=== PATIENT | female | born 1955 | race Caucasian/White ===

== ENCOUNTER 2022-05-11 15:24 | Observation (INO) ==
[2022-05-11 16:20] LABS: Basophils # 0.1 K/mcL (0.0-0.2); Basophils % 0.8 %; Eosinophils # 0.1 K/mcL (0.0-0.6); Eosinophils % 0.7 %; Hematocrit 45.2 % (35.3-44.9); Hemoglobin 14.8 g/dL (11.5-15.4); Immature Granulocytes % 0.1 % (0-4); Lymphocytes # 3.4 K/mcL (0.6-4.6); Lymphocytes % 37.1 %; Mean Corpuscular HGB Conc 32.7 g/dL (31.6-35.5); Mean Corpuscular Hemoglobin 30.1 pg (28.0-33.3); Mean Corpuscular Volume 91.9 fL (83.0-100.0); Mean Platelet Volume 9.9 fL (9.4-12.4); Monocytes # 0.6 K/mcL (0.0-1.3); Neutrophils # 4.9 K/mcL (1.6-8.9); Platelet Count 323 K/mcL (140-400); Red Blood Count 4.92 M/mcL (3.82-4.97); Red Cell Distribution Width 13.2 % (11.5-14.5); Segmented Neutrophils % 54.3 %; White Blood Count 9.1 K/mcL (4.3-11.1)
[2022-05-11 16:38] LABS: BUN/Creatinine Ratio 10 (6-26); Blood Urea Nitrogen 7 mg/dL (8-23); Calcium 10.2 mg/dL (8.6-10.3); Carbon Dioxide 27 mEq/L (23-29); Chloride 104 mEq/L (98-107); Glucose 104 mg/dL (70-105); Osmolality,Calculated 284 (280-300); Potassium 3.5 mEq/L (3.5-5.1); Sodium 138 mEq/L (136-145); Troponin I < 0.03 ng/mL (< 0.04)
[2022-05-11] MEDS ORDERED: Iopamidol - 370 500 ML MLS IVP ONE (16:47)
[2022-05-11] MEDS ORDERED: Aspirin 81 MG TAB.CHEW PO ONE (20:09)
[2022-05-11] MEDS ORDERED: Melatonin 3 MG TABLET PO PRN (20:32)
[2022-05-11] MEDS ORDERED: Naloxone 0.4 MG/ML INJ IVP PRN (20:32)
[2022-05-11] MEDS ORDERED: Ondansetron 4 MG/2 ML VIAL IVP PRN (20:32)
[2022-05-11] MEDS ORDERED: Acetaminophen 325 MG TABLET PO PRN (20:32)
[2022-05-11] MEDS ORDERED: Nicotine 2 MG GUM BC PRN (21:35)
[2022-05-12] MEDS ORDERED: Ipratropium/Albuterol Neb 3 ML IH PRN (00:21)
[2022-05-12 04:04] LABS: Basophils # 0.1 K/mcL (0.0-0.2); Basophils % 0.7 %; Eosinophils # 0.1 K/mcL (0.0-0.6); Eosinophils % 1.2 %; Hemoglobin 13.7 g/dL (11.5-15.4); Immature Granulocytes % 0.2 % (0-4); Lymphocytes # 3.1 K/mcL (0.6-4.6); Lymphocytes % 35.7 %; Mean Corpuscular HGB Conc 33.4 g/dL (31.6-35.5); Mean Corpuscular Hemoglobin 30.4 pg (28.0-33.3); Mean Corpuscular Volume 91.1 fL (83.0-100.0); Mean Platelet Volume 10.3 fL (9.4-12.4); Monocytes # 0.6 K/mcL (0.0-1.3); Monocytes % 7.2 %; Neutrophils # 4.7 K/mcL (1.6-8.9); Platelet Count 301 K/mcL (140-400); Red Cell Distribution Width 13.2 % (11.5-14.5); White Blood Count 8.6 K/mcL (4.3-11.1)
[2022-05-12 04:22] LABS: Alanine Aminotransferase 9 Units/L (7-52); Albumin/Globulin Ratio 1.6 (1.1-2.2); Alkaline Phosphatase 77 Units/L (34-104); Aspartate Amino Transferase 14 Units/L (13-39); BUN/Creatinine Ratio 10 (6-26); Bilirubin,Total 0.5 mg/dL (0.3-1.0); Blood Urea Nitrogen 6 mg/dL (8-23); Calcium 9.5 mg/dL (8.6-10.3); Carbon Dioxide 26 mEq/L (23-29); Chloride 104 mEq/L (98-107); Globulin 2.5 g/dL (2.4-3.5); Glucose 91 mg/dL (70-105); Magnesium 1.8 mg/dL (1.6-2.6); Osmolality,Calculated 283 (280-300); Phosphorous 3.7 mg/dL (2.7-4.5); Potassium 3.6 mEq/L (3.5-5.1); Sodium 138 mEq/L (136-145); Total Protein 6.5 g/dL (6.4-8.9)
[2022-05-12 04:26] LABS: Chol/HDL Ratio 4.6 (0-4.9); INR 1.1; Prothrombin Time 12.3 Seconds (9.4-12.1)
[2022-05-12 04:29] LABS: Activated Partial Thrombo Time 35.4 Seconds (26.0-36.0)
[2022-05-12 04:37] LABS: Thyroid Stimulating Hormone 2.297 mcIU/mL (0.340-5.600)
[2022-05-12 04:48] LABS: Folate 7.3 ng/mL (3.0-16.0)
[2022-05-12 05:07] LABS: Estimated Average Glucose 108 mg/dl; Hemoglobin A1C 5.4 %
[2022-05-12 06:39] LABS: Bilirubin,Urine Negative (Negative); Blood,Urine Small (Negative); Clarity,Urine Clear (Clear); Color,Urine Yellow (Yellow); Glucose,Urine (UA) Normal (Normal); Hyaline Casts,Urine Few per lpf (None Seen); Ketones,Urine Negative (Negative); Leukocyte Esterase,Urine Moderate (Negative); Mucus,Urine Few per lpf (None-Few); Nitrite,Urine Negative (Negative); Protein,Urine 30 mg/dL (Neg-Trace); Specific Gravity,Urine > 1.030 (1.010-1.025); Squamous Epithelial Cell,Urine Few per hpf (None-Few); Urobilinogen,Urine Normal (Normal); WBC,Urine 15-30 per hpf (0-3)
[2022-05-12 06:46] VITALS: BP 168/91; PULSE 75; TEMP 97.6; O2SAT 94
[2022-05-12] MEDS ORDERED: Nicotine 21 MG PATCH.TD24 TD SCH (09:00)
[2022-05-12] MEDS ORDERED: Aspirin Enteric Coated 81 MG Tablet PO SCH (09:00)
[2022-05-12] MEDS ORDERED: levoFLOXacin 750 MG TABLET PO SCH (09:00)
== END 2022-05-12 10:56 | disposition left against medical advice (07) ==
LOC: EMEROOARM 15:24 → 3BNU 15:24 → SUATTDRO 20:16 → 3BNU 20:52
PROVIDERS: ADMIT Internal Medicine; ATTEND Internal Medicine

== ENCOUNTER 2022-05-13 20:05 | Observation (INO) ==
[2022-05-13] MEDS ORDERED: Iopamidol - 370 500 ML MLS IVP ONE (20:09)
[2022-05-13 20:22] LABS: Hemoglobin 14.4 g/dL (11.5-15.4); Mean Corpuscular HGB Conc 34.3 g/dL (31.6-35.5); Mean Corpuscular Hemoglobin 30.7 pg (28.0-33.3); Mean Corpuscular Volume 89.6 fL (83.0-100.0); Mean Platelet Volume 9.5 fL (9.4-12.4); Platelet Count 331 K/mcL (140-400); Red Blood Count 4.69 M/mcL (3.82-4.97); Red Cell Distribution Width 13.2 % (11.5-14.5)
[2022-05-13 20:26] LABS: White Blood Count 13.2 K/mcL (4.3-11.1)
[2022-05-13 20:29] LABS: INR 1.1; Prothrombin Time 12.2 Seconds (9.4-12.1)
[2022-05-13 20:32] LABS: Activated Partial Thrombo Time 32.9 Seconds (26.0-36.0)
[2022-05-13 20:39] LABS: BUN/Creatinine Ratio 15 (6-26); Blood Urea Nitrogen 11 mg/dL (8-23); Calcium 9.8 mg/dL (8.6-10.3); Carbon Dioxide 26 mEq/L (23-29); Chloride 102 mEq/L (98-107); Creatine Kinase 119 Units/L (30-223); Ethanol < 10 mg/dL (Less than 10); Glucose 112 mg/dL (70-105); Osmolality,Calculated 284 (280-300); Potassium 3.5 mEq/L (3.5-5.1); Sodium 137 mEq/L (136-145)
[2022-05-13 20:41] LABS: Troponin I < 0.03 ng/mL (< 0.04)
[2022-05-13] MEDS ORDERED: cefTRIAXone 1,000 MG in Water for inj. (sterile) 10 ML IVP ONE (20:50)
[2022-05-13] MEDS ORDERED: niCARdipine 20 MG/200 ML MLS IVC SCH (21:00)
[2022-05-13 21:24] LABS: Bilirubin,Urine Negative (Negative); Blood,Urine Trace (Negative); Clarity,Urine Clear (Clear); Color,Urine Colorless (Yellow); Glucose,Urine (UA) Normal (Normal); Ketones,Urine Negative (Negative); Leukocyte Esterase,Urine Negative (Negative); Mucus,Urine Few per lpf (None-Few); Nitrite,Urine Negative (Negative); PH,Urine 6.5 pH Units (5.0-8.0); Protein,Urine Trace mg/dL (Neg-Trace); RBC,Urine 0-3 per hpf (0-3); Specific Gravity,Urine > 1.030 (1.010-1.025); Squamous Epithelial Cell,Urine Few per hpf (None-Few); Urobilinogen,Urine Normal (Normal); WBC,Urine 0-3 per hpf (0-3)
[2022-05-13] MEDS ORDERED: Acetaminophen 325 MG TABLET PO PRN (22:20)
[2022-05-13] MEDS ORDERED: Naloxone 0.4 MG/ML INJ IVP PRN (22:20)
[2022-05-13] MEDS ORDERED: Aspirin Enteric Coated 325 MG Tablet PO SCH (22:30)
[2022-05-14] MEDS: Aspirin 325 MG TABLET PO SCH ×2 (01:13→09:34)
[2022-05-14 01:22] LABS: Hematocrit 44.2 % (35.3-44.9); Hemoglobin 14.8 g/dL (11.5-15.4); Mean Corpuscular HGB Conc 33.5 g/dL (31.6-35.5); Mean Corpuscular Hemoglobin 30.3 pg (28.0-33.3); Mean Corpuscular Volume 90.6 fL (83.0-100.0); Platelet Count 322 K/mcL (140-400); Red Blood Count 4.88 M/mcL (3.82-4.97); Red Cell Distribution Width 13.2 % (11.5-14.5); White Blood Count 11.4 K/mcL (4.3-11.1)
[2022-05-14 01:31] LABS: INR 1.1; Prothrombin Time 12.6 Seconds (9.4-12.1)
[2022-05-14 01:44] LABS: Magnesium 1.8 mg/dL (1.6-2.6); Phosphorous 3.5 mg/dL (2.7-4.5)
[2022-05-14 01:48] LABS: Alanine Aminotransferase 11 Units/L (7-52); Albumin 4.5 g/dL (3.5-5.7); Albumin/Globulin Ratio 1.6 (1.1-2.2); Alkaline Phosphatase 89 Units/L (34-104); Aspartate Amino Transferase 17 Units/L (13-39); BUN/Creatinine Ratio 15 (6-26); Bilirubin,Total 0.4 mg/dL (0.3-1.0); Blood Urea Nitrogen 10 mg/dL (8-23); Calcium 9.9 mg/dL (8.6-10.3); Carbon Dioxide 26 mEq/L (23-29); Chloride 103 mEq/L (98-107); Chol/HDL Ratio 4.2 (0-4.9); Cholesterol 209 mg/dL (< 200); Globulin 2.9 g/dL (2.4-3.5); Glucose 106 mg/dL (70-105); HDL Cholesterol 50 mg/dL (40-59); LDL Cholesterol,Calculated 148 mg/dL (< 100); Osmolality,Calculated 287 (280-300); Potassium 3.4 mEq/L (3.5-5.1); Sodium 139 mEq/L (136-145); Total Protein 7.4 g/dL (6.4-8.9); Triglycerides 56 mg/dL (< 150); Troponin I < 0.03 ng/mL (< 0.04)
[2022-05-14 01:57] LABS: Thyroid Stimulating Hormone 1.407 mcIU/mL (0.340-5.600)
[2022-05-14 03:15] LABS: Estimated Average Glucose 108 mg/dl; Hemoglobin A1C 5.4 %
[2022-05-14] MEDS: lisinopriL 10 MG TABLET PO SCH (09:34)
[2022-05-14] MEDS ORDERED: Cyanocobalamin (B-12) 1,000 MCG/ML VIAL SQ ONE (12:53)
[2022-05-14] MEDS: *HR* Heparin 5,000 UNIT/ML VIAL SQ SCH (20:50)
[2022-05-15] MEDS: *HR* Heparin 5,000 UNIT/ML VIAL SQ SCH (04:58)
[2022-05-15] MEDS: lisinopriL 10 MG TABLET PO SCH (09:25)
[2022-05-15] MEDS: Aspirin 325 MG TABLET PO SCH (09:25)
[2022-05-15] MEDS ORDERED: Cyanocobalamin (B-12) 1,000 MCG/ML VIAL SQ ONE (10:43)
[2022-05-15 11:12] VITALS: BP 169/84; PULSE 75; TEMP 97.8; O2SAT 95
[2022-05-15 21:40] LABS: Hematocrit RBC Folate 44.2 %
[2022-05-16] MEDS ORDERED: Aspirin Enteric Coated 81 MG Tablet PO SCH (09:00)
== END 2022-05-15 13:07 | disposition home health service (06) ==
LOC: 2NENU 20:05 → EMEROOARM 20:05 → SUATTDRO 22:09 → 2NENU 05-14 00:11
PROVIDERS: ADMIT Internal Medicine; ATTEND Internal Medicine